=== PATIENT | female | born 1960 | race Caucasian/White ===

== ENCOUNTER → 2016-08-31 | Outpatient (CLI) | payer OTHER, BC ==
[~2016-08-31] VITALS: Ht 167.6 cm; Wt 83.6 kg
[~2016-08-31] MED LIST: ALDARA1 EACH TP; ARTIFICIAL TEAR15 M1 OPHTHALMIC; ASPIRIN EC81 M1 PO; ASPIRIN81 M2 PO; BENICAR OR; BLACK PEPPER; CALCIUM + VIT1 EACH PO; CITRACAL + D C1 EACH PO; COUMADIN 5 MG TA5 M1 PO; COUMADIN7.5 MG PO; ENOXAPARIN80 MG/0.8 SQ; FISH OIL 1,0001 EAC5 PO; FISH OIL 1,2001 EAC4 PO; FLEXERIL PO; GLUCOPHAGE500 MG PO; GLUCOSAMINE &1 EACH; GLUCOSAMINE-CH480 M1 PO; JANTOVEN5 MG PO; KLOR-CON 1010 MEQ PO; LISINOPRIL5 MG PO; LOPRESSOR25 PO; MARINOL10 MG PO; MARINOL5 MG PO; MILLIPRED DP5 MG PO; MIRALAX255 GM PO; MULTIVITAMIN W1 EAC5 PO; NEXIUM40 MG PO; OSTERA TABLET1 EACH PO; OXYCODONE HCL 55 MG PO; OXYCODONE HCL5 M1 PO; OXYIR5 MG PO; PHENERGAN 25 MG25 M1 PO; PREDNISONE 5 MG5 M1 PO; PRILOSEC40 MG PO; PRISTIQ100 MG PO; PROGRAF1 MG PO; ROXICODONE15 M1 PO; SYNTHROID50 MCG PO; SYNTHROID75 MCG PO; TOPROL XL25 MG PO; TOPROL XL50 MG PO; TRADJENTA5 MG PO; TURMERIC; ULTRAM ER100 MG PO; VITAMIN D1000 UNI1 PO; [UNRECOGNIZED DRUG - OTHER]
--- NOTE | ~2016-08-31 | HPC ---
[facility] [place] [address] PAIN MANAGEMENT CONSULTATION Name: ANKITA WHITNEY Room #: REG [facility].#: [id number] Admission: 08/31/16 Attend Phys: Tayo Fiore MD Discharge: Date of : 60 Report #: [id number] THIS REPORT FOR: //name// CC: TALHA Fiore DATE OF SERVICE: 08/31/2016 HISTORY: Followup visit for chronic abdominal pain and intractable nausea. The patient is now complaining of pain in the right facial area where she has a squamous cell carcinoma. The patient presents to pain clinic today reporting ongoing pain in the level of 5-6/10. She has had diffuse pain ever since developing this very rapidly spreading facial squamous cell cancer. 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 She has reported that recently her pain has been worsened by eating and this has given her some anorexia. She reports worst pain in the morning than in the evening. 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 She is also under treatment for ulcerative colitis. She has an ileostomy. PHYSICAL EXAMINATION: GENERAL: Her affect is not quite as bright as usual, but still she remains very optimistic. VITAL SIGNS: Her blood pressure 106/81, heart rate 62. BMI is 29.8. HEENT: Examination of the facial rash reveals a diffuse spreading redness around the right orbit. There is couple of areas of excoriation. The area is tender and inflamed. ABDOMEN: Soft, tender. IMPRESSION: 1. Chronic intractable pain syndrome. 2. Autoimmune hepatitis, status post liver transplant. 3. Squamous cell carcinoma, right facial area. 4. Ulcerative colitis. 5. Fibromyalgia. 6. Hypertension. 7. Management of high risk medication. PLAN: Renewed her medication for her today, Marinol 10 mg t.i.d. No other [facility] [address] [place] [address] PAIN MANAGEMENT CONSULTATION Name: CHRIS ZAVALAANKITA GEORGE Room #: REG [facility].#: [id number] Admission: 08/31/16 Attend Phys: Tayo Fiore MD Discharge: Date of : 60 Report #: [id number] medications were ordered, although we discussed the possibility of adjusting her antiemetics. RECOMMENDATIONS: To pursue acupressure wrist band, which may be used for nausea and we found that there are several types of these, which are available through [employer] and [employer]. Followup visit planned in 3 months. By: [id number] Tayo Fiore MD /nt
[2016-08-31 08:22] VITALS: BP 106/81
== END ==
LOC: PAIN 07:00
DX: K75.4 Autoimmune hepatitis (principal); K51.90 Ulcerative colitis, unspecified, without complications; I10 Essential (primary) hypertension; C76.0 Malignant neoplasm of head, face and neck; M79.7 Fibromyalgia; F10.21 Alcohol dependence, in remission

== ENCOUNTER → 2017-01-01 | Outpatient (CLI) | payer OTHER, BC ==
[~2017-01-01] VITALS: Ht 167.6 cm; Wt 88.6 kg
--- NOTE | ~2017-01-01 | HPC ---
[facility] [place] [address] [address] PAIN MANAGEMENT CONSULTATION Name: ANKITA WHITNEY Room #: REG [facility] Ning.#: [id number] Admission: 01/01/17 Attend Phys: Tayo Fiore MD Discharge: Date of : 60 Report #: [id number] THIS REPORT FOR: //name// CC: TALHA Fiore DATE OF SERVICE: 01/01/2017 Followup visit for management of high risk medication. The patient returns to clinic today. I provided her with Marinol, which helps with pain and nausea. She is doing well today. Pain scores are 2, dull aching and raw. Her fibromyalgia is under reasonable control. Her medication is Marinol, which has been very effective at a dose of 10 mg 3 times daily. She has been taking it for some time now. She seems happier and more relaxed today. She feels stable, healthier than she was last time she was here. She is dealing with a very sick and she herself has had a liver treatments plan. She suffers from autoimmune hepatitis. She has a history of ulcerative colitis with ileostomy. PHYSICAL EXAMINATION: Affect is pleasant. Blood pressure 147/95, heart rate 77, respirations 20, BMI 31.6. Diffuse tenderness. No focal weakness. IMPRESSION: 1. Chronic intractable pain. 2. Autoimmune hepatitis, status post liver transplant. 3. Ulcerative colitis. 4. History of fibromyalgia. 5. Hypertension. 6. Management of high risk medication. I had renewed her Marinol for her at a previous phone call. She is here for a routine followup. Prescriptions were provided along with refills. I plan to see her at 3-4 month intervals, although this is not an opioid or scheduled medicine. She is instructed to maintain it carefully as it has some abuse potential, has a synthetic THC. By: [id number] Tayo Fiore MD /nt
[2017-01-01 08:49] VITALS: BP 147/95
== END ==
LOC: PAIN 06:45
DX: I10 Essential (primary) hypertension (principal); K51.90 Ulcerative colitis, unspecified, without complications; K75.4 Autoimmune hepatitis; G89.4 Chronic pain syndrome; Z94.4 Liver transplant status; Z87.39 Personal history of other diseases of the musculoskeletal system and connective tissue

== ENCOUNTER → 2017-07-23 | Outpatient (CLI) | payer OTHER, BC ==
[~2017-07-23] VITALS: Ht 167.6 cm; Wt 82.6 kg
[~2017-07-23] MED LIST changes: +KEFLEX500 M1 PO
--- NOTE | ~2017-07-23 | HPC ---
[facility] [place] [address] PAIN MANAGEMENT CONSULTATION Name: CHRIS ZAVALAANKITA GEORGE Room #: REG [facility] M.Dave.#: [id number] Admission: 07/23/17 Attend Phys: Tayo Fiore MD Discharge: Date of : 60 Report #: [id number] THIS REPORT FOR: //name// CC: TALHA Fiore DATE OF SERVICE: 07/23/2017 Followup visit for chronic abdominal pain. I have been taking care of the patient now since 2009. For the last 8 years I have provided her with dronabinol under terms of a written agreement. This is not an opioid medication, but has synthetic THC and she has been using it for a combination of nausea and abdominal pain. The patient has an extremely complex medical history. She has had autoimmune hepatitis and underwent liver transplant 24 years ago. She has had 4 previous back surgeries in addition to multiple surgeries involving her GI tract and abdomen with adhesions. She has an ileostomy that has been functioning well. When I met her, she was suffering from chronic intractable pain and nausea. We have found that dronabinol controlled her abdominal symptoms, controlled nausea, vomiting and provided outstanding relief without the need for opioids or other medications. She has been seen at 3-month intervals. I prescribe her medications for her and evaluate her for pain, symptom management and functionality. She has been a model patient and has done exceptionally well. Out of the blue she was suddenly told that this medication, which has provided such a remarkable benefit to her over the course of the last 8 years, was now being denied. It was denied because "the use is not supported by the FDA or by one of the Medicare approved references for treating her medical condition: Chronic intractable pain, liver transplant status, nausea and vomiting. Coverage requires that the requested drug has been recognized for the treatment of your medical condition by one of the following Medicare approved compendium: the [facility] drug information or the [employer] information system." We have made appeals. We have been turned down. This nearsighted ridiculous denial has resulted in harm to my patient. She has had significant increase in her symptoms and has gone through withdrawal. She is less functional and is seeking out substitute medications, which she would never have done otherwise. There is absolutely no legitimate reason for this medication to suddenly be discontinued placing the patient at harm's way and forcing her into seeking alternative treatment options. She has no desire to use an opioid and is unable to take other medications for pain. We have been left no suggestions by this nebulous denial system, which has been difficult to navigate despite my nurse's effort. An expedited appeal was sent on 07/20/[address] [address] PAIN MANAGEMENT CONSULTATION Name: ANKITA WHITNEY Room #: REG [facility]#: [id number] Admission: 07/23/17 Attend Phys: Tayo iFore MD Discharge: Date of : 60 Report #: [id number] and we have yet to hear back. PHYSICAL EXAMINATION: GENERAL: Today, she appears more restless and anxious than I have seen her in the last 5 years or so. VITAL SIGNS: Her blood pressure is elevated at 149/107, heart rate is 92, respirations 20. She is 5 feet 6 inches, 167 pounds, BMI is 29. CHEST: Clear. CARDIAC: Rhythm shows some prematurity. Otherwise, regular. ABDOMEN: Soft with large scars from her liver transplant. She has a functioning ileostomy with stool noted in the bag. Abdomen is mildly tender. IMPRESSION: 1. Autoimmune hepatitis, status post liver transplant with history of chronic pain and nausea. 2. History of ulcerative colitis with many abdominal surgeries and ileostomy. 3. History of fibromyalgia, which was essentially cured with the use of dronabinol. 4. Hypertension, also well controlled prior to being forced into withdrawal by the insurance company. 5. Management of high risk medication under terms of our written agreement. PLAN: 1. I have checked a buccal drug screen today. 2. We will pursue further efforts to provide this medication for her. 3. I have recognized her predicament, which has been to now be suddenly thrust into the situation of seeking out similar medications, which are not legal in the state of [place] and [place]. Shame on the insurance company. <ELECTRONICALLY SIGNED> By: Tayo Fiore MD 08/20/17 [id number] Tayo Fiore MD /nt
[2017-07-23 10:54] VITALS: BP 149/107
== END ==
LOC: PAIN 07:16
DX: K75.4 Autoimmune hepatitis (principal); G89.29 Other chronic pain; K51.90 Ulcerative colitis, unspecified, without complications; M79.7 Fibromyalgia; I10 Essential (primary) hypertension; Z79.899 Other long term (current) drug therapy

== ENCOUNTER → 2017-11-15 | Outpatient (CLI) | payer OTHER, BC ==
[~2017-11-15] VITALS: Ht 167.6 cm; Wt 88.0 kg
--- NOTE | ~2017-11-15 | HPC ---
[facility] [place] [address] PAIN MANAGEMENT CONSULTATION Name: ANKITA WHITNEY Room #: REG [facility]..#: [id number] Admission: 11/15/17 Attend Phys: Tayo Fiore MD Discharge: Date of : 60 Report #: [id number] THIS REPORT FOR: //name// CC: TALHA Arriaga Physician staff Tayo Fiore DATE OF SERVICE: 11/15/2017 Followup visit for chronic abdominal pain. This is a followup visit for the patient, who is here today for her prescription of dronabinol. She has been on 10 three times a day chronically for as long as she has been associated with our clinic that dates back to 2009. It has been 8 years. Medication works effectively for her and provides substantial control of abdominal symptoms including nausea, vomiting and pain. She had no need for other medications. I will continue to provide it for her as long as we have not received interference from outside sources interrupting the doctor-patient relationship. She has as noted significant medical history, status post liver transplant. drug has been now for so long that we have a good history of how it affects her liver function studies and she has done well with them. Plan is to continue medication. PHYSICAL EXAMINATION: She is pleasant, alert and oriented, without signs of overmedication. Her blood pressure 130/93, heart rate 68, respirations 14, O2 sat 97. She is 5 feet 6 inches, 194 pounds, BMI is 31.3. She scores her pain intensity is 2. She moves easily from sitting to standing position. She walks without difficulty. She has some tenderness across the lower abdomen, but is well controlled with her current medication. There is an ileostomy. She has a scar from previous back surgery. IMPRESSION: 1. Chronic intractable abdominal pain status post liver transplant with history of chronic pain and autoimmune hepatitis. 2. Ulcerative colitis with many of surgeries including an ileostomy. 3. Fibromyalgia. 4. Hypertension. 5. Management of schedule III medication dronabinol under terms of written agreement. [address] [address] PAIN MANAGEMENT CONSULTATION Name: ANKITA WHITNEY Room #: REG [facility].#: [id number] Admission: 11/15/17 Attend Phys: Tayo Fiore MD Discharge: Date of : 60 Report #: [id number] PLAN: Medications were renewed for 3 months. I plan to see her back in the clinic at that time. By: [id number] Tayo Fiore MD /nt
[2017-11-15 13:33] VITALS: BP 130/93
== END ==
LOC: PAIN 07:16
DX: I10 Essential (primary) hypertension (principal); R10.9 Unspecified abdominal pain; G89.4 Chronic pain syndrome; M79.7 Fibromyalgia; K51.90 Ulcerative colitis, unspecified, without complications; Z79.899 Other long term (current) drug therapy

== ENCOUNTER → 2018-02-19 | Outpatient (CLI) | payer OTHER, BC ==
[~2018-02-19] VITALS: Ht 167.6 cm; Wt 87.2 kg
--- NOTE | ~2018-02-19 | HPC ---
[facility] [place] [address] [place] [address] PAIN MANAGEMENT CONSULTATION Name: ANKITA WHITNEY Room #: REG [facility].#: [id number] Admission: 02/19/18 Attend Phys: Andrez Beach DO Discharge: Date of : 60 Report #: [id number] THIS REPORT FOR: //name// CC: TALHA PUGH Physician staff DATE OF SERVICE: 02/19/2018 CHIEF COMPLAINT: Chronic abdominal pain and nausea. HISTORY OF PRESENT ILLNESS: As you know, the patient is a 57-year-old female who is followed by my partner, Dr. Tayo Fiore for chronic abdominal pain and nausea issues. The patient is taking Marinol 10 mg 3 times a day with good efficacy. The patient states that she tried to discontinue the medication for a period of approximately 3 days and her symptoms returned quite rapidly. She restarted the medication and her symptoms resolved. She is extremely pleased with response to the Marinol and wishes to continue the therapy. She is having no side effects to medication including somnolence, decreased mental acuity, disorientation and confusion. She is indicating coverage remains present with her current insurer. She returns today in followup visit requesting refill on medications. ALLERGIES: KETOROLAC, PROCHLORPERAZINE, CIPROFLOXACIN, VANCOMYCIN. CURRENT MEDICATIONS: Calcium carbonate 1 tab per day, omega-3 fish oil 1 tab per day, levothyroxine 50 mcg per day, prednisone 5 mg twice a day, MiraLax 17 grams per day, metoprolol 50 mg once a day, dronabinol 10 mg 3 times a day, warfarin 5 mg 1 tab p.o. q.a.m., tacrolimus 1 mg per day, cholecalciferol 1 tab per day, turmeric one tablet each day, Tradjenta 5 mg once a day, lisinopril 10 mg per day, Aldara apply topically twice a day. SOCIAL HISTORY: The patient reports herself a nonsmoker. Denies IV or illicit drug use. Denies any chronic alcohol use. She is unaccompanied at today's visit. IMAGING: No new imaging available. PQRS: The patient has bilateral lower extremity osteoarthritis involving bilateral hips, bilateral knees. No rheumatoid arthritis. She is placing pain intensity today at 2/10. She is not a fall risk, has not had a fall in the last 3 months. She is on a blood thinner in the form of warfarin. She is treated for hypertension. She is not on opioid. She is a low risk for opioid abuse. Pain impact 35/70, moderate. [address] [address] PAIN MANAGEMENT CONSULTATION Name: AKNITA WHITNEY Room #: REG [facility] Dulce MariaChas#: [id number] Admission: 02/19/18 Attend Phys: Andrez Beach DO Discharge: Date of : 60 Report #: [id number] PHYSICAL EXAMINATION: VITAL SIGNS: Blood pressure 132/85, pulse 83, respiratory rate 16 and unlabored. The patient is 98% on room air. Height 5 feet 6 inches tall, weight 192.2 pounds, BMI calculated 31.0. GENERAL: Well-developed, well-nourished, well-hydrated 57-year-old female appearing her stated age, placing current pain score 2/10. HEENT: Normocephalic, atraumatic. Pupils equal, round, reactive to light. Speech is fluent. The patient deemed a good historian. EXTREMITIES: Show no clubbing, no cyanosis, no edema. ABDOMEN: There is some tenderness over the lower abdomen with deep palpation. Ileostomy is in place and scars from previous surgery noted. Bowel sounds are present. ASSESSMENT: 1. Chronic abdominal pain. 2. Chronic nausea. 3. Ulcerative colitis. 4. Fibromyalgia. 5. Chronic intractable pain. PLAN: 1. The patient returns today in followup visit indicating good efficacy with the drop dronabinol therapy. She denies any side effects of somnolence, decreased mental acuity, disorientation, confusion, mental slowing with the use of medication. The patient states that she missed a couple of doses of the medication over a 3-day period of time and noted significant increase in her abdominal discomfort. She restarted the medication and the symptoms did resolve. She returns requesting refill on medications. Currently, her insurer is covering this medication and she wishes to continue its use as she is finding good benefit with therapy. 2. The patient was provided a prescription of Marinol 10 mg dose 1 tab p.o. t.i.d., I have given the patient #90 with 2 refills, 3 months' worth of medication. 3. The patient will return to see Dr. Tayo Fiore, her prescribing physician for continued therapy and discussion of other treatment options if necessary. <ELECTRONICALLY SIGNED> By: Andrez Beach DO 02/20/18 [id number] Andrez Beach DO /nt
[2018-02-19 13:15] VITALS: BP 132/85
== END ==
LOC: PAIN 06:57
DX: R10.9 Unspecified abdominal pain (principal); R11.0 Nausea; G89.4 Chronic pain syndrome; K51.90 Ulcerative colitis, unspecified, without complications; M79.7 Fibromyalgia

== ENCOUNTER → 2018-05-20 | Outpatient (CLI) | payer OTHER, BC ==
[~2018-05-20] VITALS: Ht 167.6 cm; Wt 79.4 kg
--- NOTE | 2018-05-20 10:05 | NUR ---
Pain Clinic Assessment: 1. History of Osteoarthritis: LOWER EXTREMEITY History of Rheumatoid Arthritis: Not Applicable 2. Height: 5 ft. 6 in. 167.6 cm. Weight: 175.0 lb. oz. 79.380 kg. Patient's BMI: 28.3 3. Vital Signs: BP: Pulse: 77 Resp: 16 Temp: 02 Sat: 98 ECG Mon: 4. Pain Intensity: 2 5. Fall Risk: Dizziness: N Needs help standing or walking: N Fallen in the last 3 months: N Fall risk comments: 6. Patient on Blood Thinner: Warfarin (Coumadin) 7. History of Hypertension: Y 8. Opioid Therapy greater than 6 weeks: N Opiate Contract Signed: 9. Risk Assessment Tool Provided: LOW RISK 10. Functional Assessment Tool: 39/70 11. Recreational Drug Use: Current within past 3 mos Drug Type: Tobacco Use: Never Smoker Tobacco Type: Amount or Packs/day: How Many Years: Alcohol Use: Yes Frequency: Special Occasions Quant:
--- NOTE | 2018-05-21 07:24 | HPC ---
[facility] [place] [address] PAIN MANAGEMENT CONSULTATION Name: CHRIS ZAVALAANKITA GEORGE Room #: REG [facility].#: [id number] Admission: 05/20/18 Attend Phys: Gisela Jacob Discharge: Date of : 60 Report #: [id number] THIS REPORT FOR: //name// CC: Gisela Jacob [facility] Physician staff DATE OF SERVICE: 05/20/2018 CHIEF COMPLAINT: Chronic abdominal pain and nausea. HISTORY OF PRESENT ILLNESS: This is a pleasant 57-year-old female who is followed by Dr. Tayo Fiore for her chronic abdominal pain. She currently takes Marinol 3 times a day 10 mg with good results. The patient tells me that she has been doing well today. Her pain score, nausea score is 2/10. She tells me that her autoimmune problems are better when she takes her Marinol as well as her nausea and vomiting is significantly decreased. She also takes MiraLax twice a day and does not have any problems with constipation. She has questions today about legalized marijuana for medical purposes since it will soon be legal in the state of [place]. This patient does live in [place] though, but does have questions regarding this. She would like a refill of her medicines today. ALLERGIES: TORADOL, CIPRO, VANCOMYCIN. CURRENT LIST OF MEDICATIONS: Marinol 10 mg 3 times a day, Aldara cream twice a day, Zestril 5 mg daily, Tradjenta 5 mg daily, turmeric, vitamin D daily, Prograf 1 mg daily, Coumadin 6 mg daily, metoprolol 50 mg twice a day, MiraLax twice a day, prednisone 5 mg daily, Synthroid 50 mcg daily, fish oil daily and calcium with vitamin D. PQRS: 1. The patient has bilateral lower extremity osteoarthritis and denies rheumatoid arthritis. Height is 5 feet 6 inches, weight 175. BMI is 28.3. Vital signs: Blood pressure 130/90, pulse 77, respirations 16, oxygen sat 98, pain score 2/10. Fall risk, she denies dizziness, does not need help walking or standing, has not fallen in the last 3 months. The patient is on Coumadin for a blood thinner and does take antihypertensive medicines. 2. She does not take opioids, but she does have a contract on the chart for her Marinol. Risk assessment tool is low. Her functional assessment is 39/70 3. Recreational drug use. The patient does take it currently. She is not a smoker and occasionally drinks alcohol. We did check the prescription monitoring system. The patient is filling her Marinol from our doctors appropriately. She did have a hydrocodone filled. When questioned about that, she tells me it was from an acid peel that she gets done periodically as a result of her transplants. She did take hydrocodone for a couple of days. Otherwise, no other deviations noted. [address] [address] PAIN MANAGEMENT CONSULTATION Name: ANKITA WHITNEY Room #: REG [facility]#: [id number] Admission: 05/20/18 Attend Phys: Gisela Jacob Discharge: Date of : 60 Report #: [id number] PHYSICAL EXAMINATION: GENERAL: This is a well-developed, well-nourished female who appears her stated age. She is alert and orientated and her affect is appropriate. HEENT: Normocephalic, atraumatic. Pupils equal, round, reactive to light. She is a good historian and speech is fluent. EXTREMITIES: No clubbing, no cyanosis, no edema present. ABDOMEN: The patient complains of some tenderness in her lower abdomen. She does have ileostomy in place. ASSESSMENT: 1. Chronic abdominal pain. 2. Chronic nausea. 3. Ulcerative colitis. 4. Fibromyalgia. 5. Chronic intractable pain. 6. Status post liver transplant. We reviewed the fact that opiate medications are being used to provide analgesia adequate to support activities of daily living, not attempting to achieve a specific pain score on the 0-10 Visual Analog Scale. The current opiate medications are providing sufficient analgesia to allow the patient to participate in activities of daily living. The patient is not exhibiting any aberrant behavior suggestive of drug diversion. The patient is not having any adverse reactions to medications. The patient is not suffering from daytime somnolence or mental acuity changes. The patient is managing opiate-induced constipation with appropriate hgfx-ebp-rrhvhqz agents and dietary considerations. The patient was counseled on concern for caution with operating a motor vehicle while using opiate medications. A physical exam was performed and the patient's functional status was evaluated. All patients with back pain were advised against the bed rest greater than 4 days and were advised to return to normal activities. Pain score assessment was noted and the treatment plan was reviewed with the patient. All current medications, both prescribed and OTC were reviewed and reconciled on the electronic medical record. Tobacco screening was accomplished and smoking cessation was advised when indicated. BMI was noted and diet/exercise modification was recommended for all patients following outside normal parameters. I reviewed with the patient today their responsibilities to safeguard prescription medications, reviewed their responsibility to utilize medications only as prescribed by the physician. They are to seek and receive pain medications only from 1 physician group ( [facility]). They are to use 1 pharmacy and keep the clinic informed if they change pharmacies. Their responsibilities include making followup visits in a timely fashion and to avoid [facility] [address] [place] [address] PAIN MANAGEMENT CONSULTATION Name: ANKITA WHITNEY Room #: REG [facility]..#: [id number] Admission: 05/20/18 Attend Phys: Gisela JAKOB Nidia Discharge: Date of : 60 Report #: [id number] abrupt discontinuation of medication usage. Their responsibilities further include bringing their medications (bottles from the pharmacy with residual pills) to the visit for possible confirmation of pill counts and the patient understands it is their responsibility to submit to random drug screens to ensure both that the medications prescribed are present, and that no other controlled substances are present. All prescriptions provided today were generated electronically. PLAN: 1. The patient will return to the clinic today for followup of her medication refill for her dronabinol. She denies any side effects of daytime somnolence or decreased mental acuity, disorientation or confusion. She states that it is very helpful in controlling her inflammation and her nausea and vomiting. The patient thinks that we will need to do a prior authorization again. The patient has been on this medication for several years, periodically needing a prior authorization, but the patient does get overall good relief from her symptoms by taking this medication on a daily basis. Script was given today for Marinol 10 mg 3 times a day, #90 with 2 additional refills. 2. We did discuss medical marijuna. The laws are still being finalized in [place] and as far as I know no doctors in this clinic will be writing for medical marijuana. We all need more information about how the state is going to handle this issue. It is legalized at the state level but not at the federal level. 3. Dr. Fiore did stop and see the patient as he is a prescribing doctor. Care given today under collaboration with Dr. Fiore. The patient will return in 3 months' time. <ELECTRONICALLY SIGNED> By: Gisela Jacob 05/21/18 0724 [id number] Gisela Jacob /nt
== END ==
LOC: PAIN 07:25
DX: R10.9 Unspecified abdominal pain (principal); R11.0 Nausea; G89.4 Chronic pain syndrome; M79.7 Fibromyalgia; K51.90 Ulcerative colitis, unspecified, without complications; Z94.4 Liver transplant status

== ENCOUNTER → 2018-08-19 | Outpatient (CLI) | payer OTHER, BC ==
[~2018-08-19] VITALS: Ht 170.2 cm; Wt 88.5 kg
[~2018-08-19] MED LIST changes: +TOPROL XL100 MG PO
[2018-08-19 09:12] VITALS: BP 138/72
--- NOTE | 2018-08-19 09:15 | NUR ---
Pain Clinic Assessment: 1. History of Osteoarthritis: LOWER EXTREMEITY History of Rheumatoid Arthritis: Not Applicable 2. Height: 5 ft. 7 in. 170.2 cm. Weight: 195.0 lb. oz. 88.452 kg. Patient's BMI: 30.5 3. Vital Signs: BP: 138/72 Pulse: 76 Resp: 16 Temp: 02 Sat: 98 ECG Mon: 4. Pain Intensity: 2 5. Fall Risk: Dizziness: N Needs help standing or walking: N Fallen in the last 3 months: N Fall risk comments: 6. Patient on Blood Thinner: Warfarin (Coumadin) 7. History of Hypertension: Y 8. Opioid Therapy greater than 6 weeks: N Opiate Contract Signed: 9. Risk Assessment Tool Provided: LOW RISK 10. Functional Assessment Tool: 39/70 11. Recreational Drug Use: Current within past 3 mos Drug Type: Tobacco Use: Never Smoker Tobacco Type: Amount or Packs/day: How Many Years: Alcohol Use: Yes Frequency: Quant:
--- NOTE | 2018-08-20 07:41 | HPC ---
[facility] [address] [address] PAIN MANAGEMENT CONSULTATION Name: CHRIS ZAVALAANKITA GEORGE Room #: REG [facility]..#: [id number] Admission: 08/19/18 ������������������ Attend Phys: Gisela Jacob Discharge: ������������������ Date of : 60 Report #: [id number] THIS REPORT FOR: //name// CC: Gisela Jacob [facility] Physician staff DATE OF SERVICE: 08/19/2018 CHIEF COMPLAINT: Chronic abdominal pain and nausea. HISTORY OF PRESENT ILLNESS: This is a pleasant 57-year-old that returns to the pain clinic today for her chronic abdominal pain and refill of her Marinol prescription. She tells me that her nausea is well controlled when she takes her Marinol 3 times a day. She does complain of some abdominal pain, rating her scores today at 2/10 of a pain score, does not give me a nausea score. She tells me that she is doing quite well. She is not having any problems with daytime sleepiness or constipation. She does tell me that she was in the hospital last month for about 5 days with influenza A. She did not get a flu shot this year, but has decided that she will get one in the future since she is immunosuppressed from her liver transplant. She thinks that it is probably a good idea to have it after being so sick this past month. The patient would just like a refill of her nausea medicine Marinol that she can be controlled with her Marinol. ALLERGIES: TORADOL, COMPAZINE, CIPRO AND VANCOMYCIN. CURRENT MEDICATIONS: Toprol-XL 100 mg daily, Marinol 10 mg t.i.d., Aldara topical cream b.i.d., lisinopril 5 mg daily, Tradjenta 5 mg daily, turmeric daily, vitamin D daily, Prograf 1 mg daily, Coumadin 6 mg daily, MiraLax daily, prednisone 5 mg daily, Synthroid 50 mcg daily, and fish oil capsule daily. PQRS: 1. The patient has bilateral lower extremity osteoarthritis and denies any rheumatoid arthritis. 2. Height is 5 feet 7 inches, weight is 195, BMI is 30. 3. Vital signs: 138/72, pulse is 76, respirations 16, oxygen sat 98. 4. Pain and nausea score of 2/10. 5. Fall risk. Denies dizziness, does not need help walking or standing, has not fallen in the last 3 months. 6. The patient takes Coumadin on a daily basis for her blood thinner and she does take medicines for hypertension. 7. Opioid therapy as she does not take. Her risk assessment tool is low. Her functional assessment is 39/70. 8. Recreational drug use. Within the past 3 months, she is not a smoker [place] [address] PAIN MANAGEMENT CONSULTATION Name: CHRIS ZAVALAANKITA DORIS Room #: REG [facility]#: [id number] Admission: 08/19/18 ������������������ Attend Phys: Gisela Jacob Discharge: ������������������ Date of : 60 Report #: [id number] 9. We did check the prescription monitoring system. The patient is filling appropriately her Marinol from Dr. Tayo Fiore. We will check a drug screen on her at her next visit. PHYSICAL EXAMINATION: GENERAL: This is a well-developed, well-nourished, well-hydrated 57-year-old female, who appears her stated age. She is alert and orientated, her affect is appropriate. HEENT: Normocephalic, atraumatic. Pupils equal, round and reactive to light. Speech is fluent. EXTREMITIES: No clubbing, no cyanosis, no edema. ABDOMEN: Does complain of some tenderness and has ileostomy in place. ASSESSMENT: 1. Chronic abdominal pain. 2. Chronic nausea. 3. Ulcerative colitis. 4. Fibromyalgia. 5. Chronic intractable pain. 6. Status post liver transplant. We reviewed the fact that opiate medications are being used to provide analgesia adequate to support activities of daily living, not attempting to achieve a specific pain score on the 0-10 Visual Analog Scale. The current opiate medications are providing sufficient analgesia to allow the patient to participate in activities of daily living. The patient is not exhibiting any aberrant behavior suggestive of drug diversion. The patient is not having any adverse reactions to medications. The patient is not suffering from daytime somnolence or mental acuity changes. The patient is managing opiate-induced constipation with appropriate xpus-llw-qmwrngv agents and dietary considerations. The patient was counseled on concern for caution with operating a motor vehicle while using opiate medications. A physical exam was performed and the patient's functional status was evaluated. All patients with back pain were advised against the bed rest greater than 4 days and were advised to return to normal activities. Pain score assessment was noted and the treatment plan was reviewed with the patient. All current medications, both prescribed and OTC were reviewed and reconciled on the electronic medical record. Tobacco screening was accomplished and smoking cessation was advised when indicated. BMI was noted and diet/exercise modification was recommended for all patients following outside normal parameters. I reviewed with the patient today their responsibilities to safeguard prescription medications, reviewed their responsibility to utilize medications only as prescribed by the physician. They are to seek and receive pain [facility] [address] [place] [address] PAIN MANAGEMENT CONSULTATION Name: ANKITA WHITNEY Room #: REG [facility]#: [id number] Admission: 08/19/18 ������������������ Attend Phys: Gisela Jacob Discharge: ������������������ Date of : 60 Report #: [id number] medications only from 1 physician group ( [facility]). They are to use 1 pharmacy and keep the clinic informed if they change pharmacies. Their responsibilities include making followup visits in a timely fashion and to avoid abrupt discontinuation of medication usage. Their responsibilities further include bringing their medications (bottles from the pharmacy with residual pills) to the visit for possible confirmation of pill counts and the patient understands it is their responsibility to submit to random drug screens to ensure both that the medications prescribed are present, and that no other controlled substances are present. All prescriptions provided today were generated electronically. PLAN: 1. We discussed treatment options with the patient today. She is doing well with her Marinol, which we will refill today for 10 mg tablets 3 times a day, #90 with 2 additional refills. 2. The patient tells me while she was in the hospital with her influenza A, she was having some cardiac issues. She is wearing a wireless monitor for 2 weeks to see if there is any other dysrhythmias besides her AFib. They are adjusting her medications slightly. She tells me she has not had a cardiac workup for a while, so she feels that this is good to see what was causing her to have some other problems while she was in the hospital. 3. The patient will follow up with us in 3 months' time period for an appointment. 4. Dr. Fiore did see the patient today and also collaborative care. ��������������������������������������������� <ELECTRONICALLY SIGNED> ���������������������������������������� By: Gisela Jacob ��������������������������������������������� 08/20/18 0741 [id number] Gisela Jacob /nt
== END ==
LOC: PAIN 06:47
DX: R10.9 Unspecified abdominal pain (principal); R11.0 Nausea; G89.4 Chronic pain syndrome; M79.7 Fibromyalgia; K51.90 Ulcerative colitis, unspecified, without complications; Z94.4 Liver transplant status; Z88.8 Allergy status to other drugs, medicaments and biological substances

== ENCOUNTER → 2019-02-12 | Outpatient (CLI) | payer OTHER, BC ==
[~2019-02-12] VITALS: Ht 170.2 cm; Wt 81.6 kg
[~2019-02-12] MED LIST changes: +EFUDEX40 GM TOP; +FLECAINIDE ACET50 M1 PO; +LIPITOR 20 MG T20 M1 PO; +LIPITOR40 MG PO; +TAMBOCOR 100 M100 M1 PO
[2019-02-12 08:58] VITALS: BP 140/99
--- NOTE | 2019-02-12 09:07 | NUR ---
Pain Clinic Assessment: 1. History of Osteoarthritis: LOWER EXTREMEITY History of Rheumatoid Arthritis: Not Applicable 2. Height: 5 ft. 7 in. 170.2 cm. Weight: 180.0 lb. oz. 81.648 kg. Patient's BMI: 28.2 3. Vital Signs: BP: 140/99 Pulse: 65 Resp: 16 Temp: 02 Sat: 95 ECG Mon: 4. Pain Intensity: 2 5. Fall Risk: Dizziness: N Needs help standing or walking: N Fallen in the last 3 months: N Fall risk comments: 6. Patient on Blood Thinner: Warfarin (Coumadin) 7. History of Hypertension: Y 8. Opioid Therapy greater than 6 weeks: N Opiate Contract Signed: 9. Risk Assessment Tool Provided: LOW RISK-0 10. Functional Assessment Tool: 11. Recreational Drug Use: Current within past 3 mos Drug Type: Tobacco Use: Never Smoker Tobacco Type: Amount or Packs/day: How Many Years: Alcohol Use: Yes Frequency: Special Occasions Quant: 1
--- NOTE | 2019-02-13 08:25 | HPC ---
[facility] [place] [address] PAIN MANAGEMENT CONSULTATION Name: TIMOTHYRAJAN LUCASANKITA GEORGE Room #: REG [facility].#: [id number] Admission: 02/12/19 Attend Phys: Gisela Jacob Discharge: Date of : 60 Report #: [id number] THIS REPORT FOR: //name// CC: Gisela Jacob [facility] Physician staff DATE OF SERVICE: 02/12/2019 CHIEF COMPLAINT: Chronic abdominal pain and nausea. HISTORY OF PRESENT ILLNESS: This is a 58-year-old female who returns to the pain clinic today for a refill of her Marinol that she uses to help treat her ongoing nausea and abdominal pain. She reports that she is doing quite well, very stable with this. Pain score is 2/10 today, which tends to be an average number. She also does suffer from fibromyalgia. Her pain is a cramping, aching pain, worse with eating and usually worse in the morning, but the medications are very helpful in treating this pain. She would like refills of this today. ALLERGIES: TORADOL, COMPAZINE, CIPRO, AND VANCOMYCIN. CURRENT LIST OF MEDICATIONS: Efudex cream, flecainide 100 mg b.i.d., Lipitor 20 mg daily, Marinol 10 mg 3 times a day, Toprol XL 100 mg daily, Aldara cream topical b.i.d., Zestril 5 mg daily, Tradjenta 5 mg daily, turmeric, vitamin D, Prograf 1 mg daily, Coumadin 6 mg daily, MiraLax p.r.n., prednisone 5 mg daily, Synthroid 50 mcg daily and fish oil. PQRS: 1. She has bilateral lower extremity osteoarthritis. Denies any rheumatoid arthritis. 2. Height is 5 feet 7 inches, weight is 180, BMI is 28. 3. Vital signs 140/99, pulse is 65, respirations 16, oxygen sat is 95. 4. Pain score is 2/10. 5. Denies dizziness, does not need help walking or standing, has not fallen in the last 3 months. 6. The patient is on blood thinner of Coumadin and also takes hypertension medicines. 7. Opioid therapy, she denies. Her risk assessment is low. Functional assessment is 25/70. 8. Recreational drug use: She does use marijuana. She is not a smoker and occasionally drinks alcohol. According to the prescription monitoring system, the patient is filling appropriately for her Marinol in a timely fashion and is due today. ASSESSMENT: [facility] [address] [place] [address] PAIN MANAGEMENT CONSULTATION Name: ANKITA WHITNEY Room #: REG [facility].#: [id number] Admission: 02/12/19 Attend Phys: Gisela Jacob Discharge: Date of : 60 Report #: [id number] 1. Chronic abdominal pain with chronic nausea. 2. Ulcerative colitis. 3. Fibromyalgia. 4. Chronic intractable pain. 5. Status post liver transplant. PHYSICAL EXAMINATION: GENERAL: This is a well-developed, well-nourished 58-year-old female who appears her stated age. She is alert and orientated. HEENT: Normocephalic, atraumatic. Extraocular eye muscles are intact. Mucous membranes are moist. EXTREMITIES: No clubbing, no cyanosis, no edema. She has an ileostomy in place. She has tenderness in her lower abdomen, with no nausea noted today. We reviewed the fact that opiate medications are being used to provide analgesia adequate to support activities of daily living, not attempting to achieve a specific pain score on the 0-10 Visual Analog Scale. The current opiate medications are providing sufficient analgesia to allow the patient to participate in activities of daily living. The patient is not exhibiting any aberrant behavior suggestive of drug diversion. The patient is not having any adverse reactions to medications. The patient is not suffering from daytime somnolence or mental acuity changes. The patient is managing opiate-induced constipation with appropriate jfmn-zlq-tudaziy agents and dietary considerations. The patient was counseled on concern for caution with operating a motor vehicle while using opiate medications. A physical exam was performed and the patient's functional status was evaluated. All patients with back pain were advised against the bed rest greater than 4 days and were advised to return to normal activities. Pain score assessment was noted and the treatment plan was reviewed with the patient. All current medications, both prescribed and OTC were reviewed and reconciled on the electronic medical record. Tobacco screening was accomplished and smoking cessation was advised when indicated. BMI was noted and diet/exercise modification was recommended for all patients following outside normal parameters. I reviewed with the patient today their responsibilities to safeguard prescription medications, reviewed their responsibility to utilize medications only as prescribed by the physician. They are to seek and receive pain medications only from 1 physician group ( [facility]). They are to use 1 pharmacy and keep the clinic informed if they change pharmacies. Their responsibilities include making followup visits in a timely fashion and to avoid abrupt discontinuation of medication usage. Their responsibilities further include bringing their medications (bottles from the pharmacy with residual pills) to the visit for possible confirmation of pill counts and the patient understands it is their responsibility to submit to random drug screens to [address] [address] PAIN MANAGEMENT CONSULTATION Name: ANKITA WHITNEY Room #: REG [facility]#: [id number] Admission: 02/12/19 Attend Phys: Gisela Jacob Discharge: Date of : 60 Report #: [id number] ensure both that the medications prescribed are present, and that no other controlled substances are present. All prescriptions provided today were generated electronically. PLAN: 1. We discussed treatment options with the patient today. Refills for her Marinol, #90, with 2 additional refills. This is very beneficial in controlling her pain and keeping her out of the hospital. 2. Dr. Grullon did see the patient and collaborated care. We did go over her urine drug screen, which was appropriate for her Marinol use, though it did show signs of metabolites of alcohol from previous drinking the night before, which she does admit to drinking 1 daily. 3. The patient will be seen in 3 months. She will call for an appointment as needed. <ELECTRONICALLY SIGNED> By: Gisela Jacob 02/13/19 0825 1004 0043 Gisela Jacob /betsy
== END ==
LOC: PAIN 06:50
DX: R10.9 Unspecified abdominal pain (principal); K51.90 Ulcerative colitis, unspecified, without complications; G89.4 Chronic pain syndrome; M79.7 Fibromyalgia; Z94.4 Liver transplant status; Z79.899 Other long term (current) drug therapy; Z88.8 Allergy status to other drugs, medicaments and biological substances

== ENCOUNTER → 2019-04-14 | Outpatient (CLI) | payer OTHER, BC ==
[~2019-04-14] VITALS: Ht 170.2 cm; Wt 89.9 kg
[2019-04-14 09:08] VITALS: BP 120/93
--- NOTE | 2019-04-14 09:23 | NUR ---
Pain Clinic Assessment: 1. History of Osteoarthritis: LOWER EXTREMEITY History of Rheumatoid Arthritis: Not Applicable 2. Height: 5 ft. 7 in. 170.2 cm. Weight: 198.2 lb. oz. 89.903 kg. Patient's BMI: 31.0 3. Vital Signs: BP: 120/93 Pulse: 71 Resp: 16 Temp: 02 Sat: 97 ECG Mon: 4. Pain Intensity: 3 5. Fall Risk: Dizziness: N Needs help standing or walking: N Fallen in the last 3 months: N Fall risk comments: 6. Patient on Blood Thinner: Warfarin (Coumadin) 7. History of Hypertension: Y 8. Opioid Therapy greater than 6 weeks: N Opiate Contract Signed: 9. Risk Assessment Tool Provided: LOW RISK-0 10. Functional Assessment Tool: 11. Recreational Drug Use: Current within past 3 mos Drug Type: Tobacco Use: Never Smoker Tobacco Type: Amount or Packs/day: How Many Years: Alcohol Use: Yes Frequency: Special Occasions Quant: 2
--- NOTE | 2019-04-14 13:06 | HPC ---
[facility] [place] [address] PAIN MANAGEMENT CONSULTATION Name: ANKITA WHITNEY Room #: REG [facility]..#: [id number] Admission: 04/14/19 Attend Phys: Gisela Jacob Discharge: Date of : 60 Report #: [id number] THIS REPORT FOR: //name// CC: Gisela Arriaga DO Physician staff Tayo Fiore MD DATE OF SERVICE: 04/14/2019 CHIEF COMPLAINT: Chronic abdominal pain and nausea. HISTORY OF PRESENT ILLNESS: This is a 58-year-old female who returns to the pain clinic today for refill of her Marinol that she uses to help treat her ongoing nausea and abdominal pain. She states that her nausea score is 3/10 today, which is an average number for her. It is exacerbated by eating or in the morning upon awakening. She reports she also has ongoing fibromyalgia pain in all of her joints that is achy as well. She knows that she will need a prior an authorization for her Marinol in late April or early May, so she is here slightly early today, so we can work on this prior authorization. Overall, she finds it quite beneficial enabling her to be quite active since it does subside her nausea. She reports she is quite happy, she is going to be a grandmother. She has recently seen her family over Thanksgiving and she learned the news, so she is quite upbeat today regarding this news. ALLERGIES: TORADOL, CIPRO, VANCOMYCIN AND COMPAZINE. CURRENT LIST OF MEDICATIONS: Marinol 10 mg 3 times a day, TravaCor, Lipitor, Toprol, lisinopril, Tradjenta, turmeric, vitamin D, Prograf, Coumadin, MiraLax, prednisone and Synthroid. PQRS: 1. She has lower extremity osteoarthritis. Denies any rheumatoid arthritis. 2. Height is 5 feet 7 inches, weight is 198, BMI is 31. 3. Vital signs: 120/93, pulse is 71, respirations 16, oxygen sat is 97. 4. Pain score is 3/10. 5. Denies dizziness, does not need help standing or walking, has not fallen in the last 3 months. 6. The patient is on Coumadin. She also experiences hypertension and takes medicines for this. 7. Opiate therapy is not greater than 6 weeks. She takes no opioid medications. Her risk assessment tool is low. Functional assessment is 25/70. 8. Recreational drugs. Current marijuana use and on Marinol. Does not smoke [place] [address] PAIN MANAGEMENT CONSULTATION Name: CHRIS ZAVALAANKITA GEORGE Room #: REG [facility].#: [id number] Admission: 04/14/19 Attend Phys: Gisela Jacob Discharge: Date of : 60 Report #: [id number] We did check the prescription monitoring system. The patient has been filling appropriately for her Marinol on a monthly basis. PHYSICAL EXAMINATION: GENERAL: This is a well-developed, well-nourished 58-year-old female who appears her stated age, placing her nausea score at 3/10 today. She is alert and orientated. HEENT: Normocephalic, atraumatic. Extraocular eye muscles are intact. Mucous membranes are moist. ABDOMEN: Nontender. Denies nausea presently. Had nausea prior to her medications earlier today. She has an ileostomy in place. EXTREMITIES: No clubbing, no cyanosis, no edema. MUSCULOSKELETAL: Has general aches in multiple joints. We reviewed the fact that opiate medications are being used to provide analgesia adequate to support activities of daily living, not attempting to achieve a specific pain score on the 0-10 Visual Analog Scale. The current opiate medications are providing sufficient analgesia to allow the patient to participate in activities of daily living. The patient is not exhibiting any aberrant behavior suggestive of drug diversion. The patient is not having any adverse reactions to medications. The patient is not suffering from daytime somnolence or mental acuity changes. The patient is managing opiate-induced constipation with appropriate bzja-wjl-ffvonyb agents and dietary considerations. The patient was counseled on concern for caution with operating a motor vehicle while using opiate medications. A physical exam was performed and the patient's functional status was evaluated. I reviewed with the patient today their responsibilities to safeguard prescription medications, reviewed their responsibility to utilize medications only as prescribed by the physician. They are to seek and receive pain medications only from 1 physician group ( [facility]). They are to use 1 pharmacy and keep the clinic informed if they change pharmacies. Their responsibilities include making followup visits in a timely fashion and to avoid abrupt discontinuation of medication usage. Their responsibilities further include bringing their medications (bottles from the pharmacy with residual pills) to the visit for possible confirmation of pill counts and the patient understands it is their responsibility to submit to random drug screens to ensure both that the medications prescribed are present, and that no other controlled substances are present. All prescriptions provided today were generated electronically. ASSESSMENT: 1. Chronic abdominal pain with chronic nausea. 2. Ulcerative colitis. [facility] [address] [place] [address] PAIN MANAGEMENT CONSULTATION Name: ANKITA WHITNEY Room #: REG [facility]#: [id number] Admission: 04/14/19 Attend Phys: Gisela Jacob Discharge: Date of : 60 Report #: [id number] 3. Fibromyalgia. 4. Chronic intractable pain. 5. Status post liver transplant. 6. History of vaginal cancer. PLAN: 1. We discussed treatment options with the patient today. She is here for followup for her dronabinol. She denies any side effects of daytime somnolence or decreased acuity or confusion. She states that it is very helpful in controlling her inflammation with her nausea and vomiting. This is a continuation of medication that she has been on for several years and has been very helpful. We will refill this medication today for #90 with 2 additional refills of Marinol 10 mg. We will seek reauthorization for this medication if needed for it's continuation of therapy since it is beneficial. 2. The patient is seen in collaboration with Dr. Tayo Fiore who did see the patient as well today. Scripts were e-sent by Dr. Fiore today. <ELECTRONICALLY SIGNED> By: Gisela Jacob 04/14/19 1306 [id number] Gisela Jacob /nt
== END ==
LOC: PAIN 06:51
DX: R10.9 Unspecified abdominal pain (principal); K51.90 Ulcerative colitis, unspecified, without complications; M79.7 Fibromyalgia; G89.4 Chronic pain syndrome; Z94.4 Liver transplant status

== ENCOUNTER → 2019-08-14 | Outpatient (CLI) | payer OTHER, BC ==
[~2019-08-14] VITALS: Ht 170.2 cm; Wt 88.5 kg
[~2019-08-14] MED LIST changes: +DRONABINOL10 MG PO
[2019-08-14 09:42] VITALS: BP 134/97
--- NOTE | 2019-08-14 09:46 | NUR ---
Pain Clinic Assessment: 1. History of Osteoarthritis: LOWER EXTREMEITY History of Rheumatoid Arthritis: DENIES 2. Height: 5 ft. 7 in. 170.2 cm. Weight: 195.0 lb. oz. 88.452 kg. Patient's BMI: 30.5 3. Vital Signs: BP: 134/97 Pulse: Resp: Temp: 02 Sat: ECG Mon: 4. Pain Intensity: 2 5. Fall Risk: Dizziness: N Needs help standing or walking: N Fallen in the last 3 months: N Fall risk comments: 6. Patient on Blood Thinner: Warfarin (Coumadin) 7. History of Hypertension: Y 8. Opioid Therapy greater than 6 weeks: N Opiate Contract Signed: 9. Risk Assessment Tool Provided: LOW RISK-0 10. Functional Assessment Tool: 11. Recreational Drug Use: Current within past 3 mos Drug Type: MJ Tobacco Use: Never Smoker Tobacco Type: Amount or Packs/day: How Many Years: Alcohol Use: Yes Frequency: Quant:
--- NOTE | 2019-08-14 13:08 | HPC ---
[facility] [address] [address] PAIN MANAGEMENT CONSULTATION Name: ANKITA WHITNEY Room #: REG [facility]..#: [id number] Admission: 08/14/19 Attend Phys: Gisela Jacob Discharge: Date of : 60 Report #: [id number] THIS REPORT FOR: cc: TALHA MARES DO FAM - Family physician unknown Gisela Jacob ~ CC:Tayo Fiore DATE OF SERVICE: 08/14/2019 CHIEF COMPLAINT: Chronic abdominal pain and nausea. HISTORY OF PRESENT ILLNESS: This is a 58-year-old female who returns to the pain clinic today for refill of her Marinol. She uses this to help treat her chronic abdominal pain and chronic nausea. She reports that her nausea is at a level 2/10 today, feeling that it is fairly well controlled. She is worried about the coronavirus and not being able to get her medication. She knows that there are already issues with her transplant medication, which comes from [facility] and a very short supply of that medicine. Today, as I said her nausea is a level 2, it is worse with eating and worse in the morning, but her medications has been beneficial. ALLERGIES: TORADOL, CIPRO, VANCOMYCIN AND COMPAZINE. CURRENT LIST OF MEDICATIONS: Dronabinol 10 mg 3 times a day, Efudex cream, Tambocor, Lipitor, Toprol, Zestril, Tradjenta, turmeric, vitamin D, Prograf, Coumadin, MiraLax, prednisone, and Synthroid. PQRS: 1. She has lower extremity osteoarthritis and denies any rheumatoid arthritis. 2. Height is 5 feet 7 inches, weight is 195, BMI is 35. 3. Vital Signs: 134/97. The rest were deferred. The patient is wearing gloves today. Respirations 16. Oxygen sat is not taken due to wearing gloves due to coronavirus. 4. Pain score is 2/10. Fall risk, denies dizziness. Does not need help walking or standing, has not fallen in the last 3 months. 5. The patient is on Coumadin as well as medicine for hypertension. The patient does not take any opioids. 6. Risk assessment is low. Functional assessment is 25/70. 7. Recreational drug use, currently Marinol and marijuana. She denies any tobacco use and occasionally drinks alcohol. According to the prescription monitoring system, the patient is filling her Marinol as scheduled from one provider [place] [address] PAIN MANAGEMENT CONSULTATION Name: ANKITA WHITNEY Room #: REG [facility]#: [id number] Admission: 08/14/19 Attend Phys: Gisela Jacob Discharge: Date of : 60 Report #: [id number] PHYSICAL EXAMINATION: GENERAL: This is a well-developed, well-nourished 58-year-old female who appears her stated age, placing her current nausea score at 2/10 today. HEENT: Normocephalic, atraumatic. Extraocular eye muscles are intact. Mucous membranes are moist. ABDOMEN: Nontender. Presently, she has an ileostomy in place in her lower abdomen. Denies nausea currently. MUSCULOSKELETAL: Tenderness in multiple joints as a result of her osteoarthritis. We reviewed the fact that opiate medications are being used to provide analgesia adequate to support activities of daily living, not attempting to achieve a specific pain score on the 0-10 Visual Analog Scale. The current opiate medications are providing sufficient analgesia to allow the patient to participate in activities of daily living. The patient is not exhibiting any aberrant behavior suggestive of drug diversion. The patient is not having any adverse reactions to medications. The patient is not suffering from daytime somnolence or mental acuity changes. The patient is managing opiate-induced constipation with appropriate rqep-uuo-bjohxcd agents and dietary considerations. The patient was counseled on concern for caution with operating a motor vehicle while using opiate medications. ASSESSMENT: 1. Chronic abdominal pain with chronic nausea. 2. Ulcerative colitis. 3. Fibromyalgia. 4. Osteoarthritis. 5. Status post liver transplant. 6. History of vaginal cancer. PLAN: 1. We discussed treatment options with the patient today. The patient is here for refill of her dronabinol. She finds this medicine very beneficial in controlling nausea and vomiting that she has as a result of medications and previous health problems as her ulcerative colitis and her history of liver transplant and has nausea associated with her antirejection medicines. We will refill this medicine today for 10 mg #90 with 2 additional refills. The patient does report that during this coronavirus outbreak Medicare Part D has been allowing a 3-month supply of medications for patients that have Part D. I will have Dr. Tayo Fiore write on the script to allow a 3-month supply if the medicine is available for her. 2. We encouraged the patient to take the lowest most effective dose currently during this time in case the supplied is limited due to breaks in the supply chain. The patient is very aware of this due to her anti-rejection medicine coming from [facility] and is on backorder currently. She will try to decrease her Marinol on days that she has less nausea. [facility] [address] [place] [address] PAIN MANAGEMENT CONSULTATION Name: ANKITA WHITNEY Room #: REG [facility] [id number] Admission: 08/14/19 Attend Phys: Gisela Jacob Discharge: Date of : 60 Report #: [id number] 3. The patient is seen in collaboration with Dr. Tayo Fiore who sent her medicines electronically. <ELECTRONICALLY SIGNED> By: Gisela Jacob 08/14/19 1308 [id number] [id number] Gisela Jacob /nt
== END ==
LOC: PAIN 06:47
DX: R10.9 Unspecified abdominal pain (principal); R11.0 Nausea; K51.90 Ulcerative colitis, unspecified, without complications; M79.7 Fibromyalgia; M19.90 Unspecified osteoarthritis, unspecified site; Z94.4 Liver transplant status; Z88.1 Allergy status to other antibiotic agents; Z88.8 Allergy status to other drugs, medicaments and biological substances; Z91.048 Other nonmedicinal substance allergy status; Z79.899 Other long term (current) drug therapy

== ENCOUNTER → 2019-11-07 | Outpatient (CLI) | payer OTHER, BC ==
[~2019-11-07] VITALS: Ht 170.2 cm; Wt 90.7 kg
[2019-11-07 10:19] VITALS: BP 151/96
--- NOTE | 2019-11-07 10:49 | NUR ---
Pain Clinic Assessment: 1. History of Osteoarthritis: LOWER EXTREMEITY History of Rheumatoid Arthritis: DENIES 2. Height: 5 ft. 7 in. 170.2 cm. Weight: 200.0 lb. oz. 90.720 kg. Patient's BMI: 31.3 3. Vital Signs: BP: 151/96 Pulse: 70 Resp: 14 Temp: 02 Sat: 100 ECG Mon: 4. Pain Intensity: 2 5. Fall Risk: Dizziness: N Needs help standing or walking: N Fallen in the last 3 months: N Fall risk comments: 6. Patient on Blood Thinner: Warfarin (Coumadin) 7. History of Hypertension: Y 8. Opioid Therapy greater than 6 weeks: N Opiate Contract Signed: 9. Risk Assessment Tool Provided: LOW RISK-0 10. Functional Assessment Tool: 11. Recreational Drug Use: Current within past 3 mos Drug Type: MARIJUANA Tobacco Use: Never Smoker Tobacco Type: Amount or Packs/day: How Many Years: Alcohol Use: Yes Frequency: Special Occasions Quant: 1
--- NOTE | 2019-11-17 09:29 | HPC ---
[facility] [address] [place] [address] PAIN MANAGEMENT CONSULTATION Name: ANKITA WHITNEY Room #: REG [facility].#: [id number] Admission: 11/07/19 Attend Phys: Tayo Fiore MD Discharge: Date of : 60 Report #: [id number] THIS REPORT FOR: cc: TALHA MARES DO FAM - Family physician unknown Tayo Fiore MD ~ CC: TALHA MARES FAM unknown Tayo Fiore DATE OF SERVICE: 11/07/2019 Followup visit for chronic abdominal pain, nausea and diarrhea. HISTORY OF PRESENT ILLNESS: Followup visit for the patient, who have provided treatment for over 10 years. She has a remarkable history. She has a liver transplant. She has autoimmune problems and has suffered from intractable abdominal pain and nausea. Many years ago, she found that dronabinol almost completely eliminated her symptoms with a daily dose which has remained consistent for years. She also suffer from chronic fibromyalgia and the dronabinol has aided that pain as well. Her long standing dose is continued at 10 mg 3 times daily. Over the course of the last 10 years, not accelerated her dose and shown no misuse or abuse. She is not on any other pain medications and no opioids. PQRS: Positive for lower extremity osteoarthritis. BMI is 31.3 down a bit from her last visit. Blood pressure 151/96, heart rate 70, respirations 16, O2 sat 100%, pain intensity 2. She is not at fall risk. She is on Coumadin chronically as hypertensive. She is not on an opioid agreement and takes no opioids. She has completed an opioid risk tool, her score is 0. Her functional assessment score today is reduced from 25 to 15 and she feels like she is doing well. She denies use of tobacco and occasionally has an alcoholic beverage perhaps 1 week at the most and generally in a social setting. Mike will be one of the social settings as just had her first grandchild for her daughter born this morning. PHYSICAL EXAMINATION: GENERAL: She is pleasant, alert and oriented, without signs of depression, anxiety or overmedication. CHEST: Clear. CARDIAC: Rhythm is regular. ABDOMEN: Tender. Active bowel sounds. IMPRESSION: 1. Chronic abdominal pain with chronic nausea. 2. Status post liver transplant. [facility] [address] [place] [address] PAIN MANAGEMENT CONSULTATION Name: ANKITA WHITNEY Room #: REG [facility].#: [id number] Admission: 11/07/19 Attend Phys: Tayo Fiore MD Discharge: Date of : 60 Report #: [id number] 3. Ulcerative colitis. 4. Fibromyalgia. 5. Osteoarthritis. 6. History of vaginal cancer. 7. Management of high risk medication. Dronabinol is a schedule 3 medication. I have renewed her medicines along with refills and I plan to see her back in the clinic in 3-6 months. She has shown no misuse or abuse and she is grateful for the benefits. She safeguards her medication carefully. She prefers use of dronabinol in her pill form and the pharmaceutical accuracy of dosing is a benefit. I would not recommend any change although marijuana is now legal in [place]. She would lose the consistancy of known dosing in her current regimen. Followup visit planned. <ELECTRONICALLY SIGNED> By: Tayo Fiore MD 11/17/19 0929 1250 [id number] Tayo Fiore MD /nt
== END ==
LOC: PAIN 06:54
PROVIDERS: ATTEND Anesthesiology Pain Medicine
DX: R10.9 Unspecified abdominal pain (principal); R19.7 Diarrhea, unspecified; R11.0 Nausea; K51.90 Ulcerative colitis, unspecified, without complications; M19.90 Unspecified osteoarthritis, unspecified site; M79.7 Fibromyalgia; F11.20 Opioid dependence, uncomplicated; Z94.4 Liver transplant status; Z85.44 Personal history of malignant neoplasm of other female genital organs; Z79.899 Other long term (current) drug therapy

== ENCOUNTER → 2020-02-19 | Outpatient (CLI) | payer OTHER, BC ==
[~2020-02-19] VITALS: Ht 170.2 cm; Wt 90.5 kg
[2020-02-19 08:38] VITALS: BP 131/82
--- NOTE | 2020-02-19 08:43 | NUR ---
Pain Clinic Assessment: 1. History of Osteoarthritis: LOWER EXTREMEITY History of Rheumatoid Arthritis: DENIES 2. Height: 5 ft. 7 in. 170.2 cm. Weight: 199.6 lb. oz. 90.538 kg. Patient's BMI: 31.3 3. Vital Signs: BP: 131/82 Pulse: 72 Resp: 16 Temp: 02 Sat: 98 ECG Mon: 4. Pain Intensity: 2 5. Fall Risk: Dizziness: N Needs help standing or walking: N Fallen in the last 3 months: N Fall risk comments: 6. Patient on Blood Thinner: Warfarin (Coumadin) 7. History of Hypertension: Y 8. Opioid Therapy greater than 6 weeks: N Opiate Contract Signed: 9. Risk Assessment Tool Provided: LOW RISK-0 10. Functional Assessment Tool: 11. Recreational Drug Use: Current within past 3 mos Drug Type: Tobacco Use: Never Smoker Tobacco Type: Amount or Packs/day: How Many Years: Alcohol Use: Yes Frequency: Quant:
--- NOTE | 2020-02-20 07:37 | HPC ---
[facility] [address] [place] [address] PAIN MANAGEMENT CONSULTATION Name: ANKITA WHITNEY Room #: REG [facility].#: [id number] Admission: 02/19/20 Attend Phys: Gisela Jacob Discharge: Date of : 60 Report #: [id number] CC: Gisela [facility] Physician staff Tayo Fiore MD DATE OF SERVICE: 02/19/2020 CHIEF COMPLAINT: Chronic abdominal pain, nausea and diarrhea. HISTORY OF PRESENT ILLNESS: As you know, this is a very pleasant 59-year-old female who returns to the pain clinic today for refill of her medication that she uses to help treat her ongoing nausea and abdominal pain from a liver transplant in her medications. Today, she reports she is doing quite well on the dronabinol taking it several times a day. It mostly eliminates her extensive nausea that she does have. She states she did not know what she would do without the medication. Today, she is reporting that she has been feeling quite well for a significant amount of time. She does report that occasionally she will have a flare depending on what she eats, but overall she is doing quite well. The patient is very excited. She has a new grandbaby and in March starts caring for this baby 2 times a week. Since she is no longer working, she said that will give her something to look forward to several times a week. She denies any problems with constipation or side effects as a result of her medications. ALLERGIES: TORADOL, COMPAZINE, CIPRO AND VANCOMYCIN. CURRENT LIST OF MEDICATIONS: Dronabinol 10 mg 3 times a day, Efudex, flecainide, atorvastatin, metoprolol, lisinopril, Tradjenta, turmeric, vitamin D, Prograf, warfarin, MiraLax, prednisone and Synthroid. PQRS: 1. She has osteoarthritis in her lower extremities. Denies rheumatoid arthritis. 2. Height is 5 feet 7 inches, weight is 199, BMI is 31. 3. Vital signs; blood pressure 131/82, pulse is 72, respirations 16, oxygen sat is 98. 4. Pain and nausea score is 2/10. 5. Denies dizziness, does not need help walking or standing, has not fallen in the last 3 months. 6. The patient is on Coumadin as well as medicines for hypertension. 7. Her opioid therapy is greater than 6 weeks. No opioids are given. Her risk assessment is low. Functional assessment is 25/70. 3. Recreational drug use current, she does take Marinol, which is synthetic marijuana. She is not a smoker and occasionally drinks alcohol. According to the prescription monitoring system, the patient is filling appropriately in a timely fashion. She is due to fill her medications today. PHYSICAL EXAMINATION: GENERAL: She is alert and orientated, very pleasant 59-year-old female who is a good historian. HEENT: Normocephalic, atraumatic. Extraocular eye muscles are intact. ABDOMEN: Tender with active bowel sounds. IMPRESSION: 1. Chronic abdominal pain with chronic nausea. 2. Status post liver transplant. 3. Fibromyalgia. 4. Osteoarthritis. 5. History of vaginal cancer. 6. Management of high risk medications. PLAN: We discussed treatment options with the patient today. The patient finds her dronabinol very beneficial in eliminating most of her nausea if she does take it on a regular schedule, enables her to be active in her life. She denies any side effects. We will have Dr. Tayo Fiore refill this medication for 10 mg, #90 with 2 additional refills. The patient will return at the beginning of the New Year, which we may need to do a preauthorization for this medication that we have authorized yearly in the past. The patient is seen today in collaboration with Dr. Tayo Fiore. <ELECTRONICALLY SIGNED> By: Gisela Jacob 02/20/20 0737 0906 [facility] Gisela valentine
== END ==
LOC: PAIN 06:53
PROVIDERS: ATTEND Clinical Nurse Specialist Adult Health
DX: R10.9 Unspecified abdominal pain (principal); G89.29 Other chronic pain; R11.0 Nausea; R19.7 Diarrhea, unspecified; M79.7 Fibromyalgia; M19.90 Unspecified osteoarthritis, unspecified site; F11.20 Opioid dependence, uncomplicated; Z94.4 Liver transplant status; Z85.44 Personal history of malignant neoplasm of other female genital organs; Z88.8 Allergy status to other drugs, medicaments and biological substances; Z79.899 Other long term (current) drug therapy

== ENCOUNTER → 2020-05-10 | Outpatient (CLI) | payer OTHER, BC ==
[~2020-05-10] VITALS: Ht 170.2 cm; Wt 89.8 kg
[~2020-05-10] MED LIST changes: +JANTOVEN2.5 MG PO
[2020-05-10 13:49] VITALS: BP 151/94
--- NOTE | 2020-05-10 14:01 | NUR ---
Pain Clinic Assessment: 1. History of Osteoarthritis: LOWER EXTREMEITY History of Rheumatoid Arthritis: DENIES 2. Height: 5 ft. 7 in. 170.2 cm. Weight: 198.0 lb. oz. 89.812 kg. Patient's BMI: 31.0 3. Vital Signs: BP: 151/94 Pulse: 78 Resp: 16 Temp: 02 Sat: 95 ECG Mon: 4. Pain Intensity: 2 5. Fall Risk: Dizziness: N Needs help standing or walking: N Fallen in the last 3 months: N Fall risk comments: 6. Patient on Blood Thinner: Warfarin (Coumadin) 7. History of Hypertension: Y 8. Opioid Therapy greater than 6 weeks: N Opiate Contract Signed: 9. Risk Assessment Tool Provided: LOW RISK-0 10. Functional Assessment Tool: 11. Recreational Drug Use: Current within past 3 mos Drug Type: Tobacco Use: Never Smoker Tobacco Type: Amount or Packs/day: How Many Years: Alcohol Use: Yes Frequency: Quant:
--- NOTE | 2020-05-11 14:15 | HPC ---
[facility] [place] [address] PAIN MANAGEMENT CONSULTATION Name: ANKITA WHITNEY Room #: REG [facility].#: [id number] Admission: 05/10/20 Attend Phys: Gisela Jacob Discharge: Date of : 60 Report #: [id number] THIS REPORT FOR: cc: TALHA MARES DO Physician not on staff Gisela Jacob ~ DATE OF SERVICE: 05/10/2020 CHIEF COMPLAINT: Chronic abdominal pain and nausea. HISTORY OF PRESENT ILLNESS: This is a followup visit and refill medications that she takes for her ongoing nausea and abdominal pain. She takes dronabinol three times a day and finds this very beneficial in helping relieve almost 100% of her nausea. Today, she is rating at a 2. She had a liver transplant in 1994 and has had nausea since that time. The patient also has fibromyalgia in multiple joints and she utilizes [id number] medications to help combat that. The patient states overall she is doing quite well, avoiding COVID, staying at home. Her is a transplant recipient as well, so they have been very cautious during this COVID outbreak. ALLERGIES: TORADOL, COMPAZINE, CIPRO AND VANCOMYCIN. CURRENT LIST OF MEDICATIONS: Dronabinol 10 mg t.i.d., Efudex, Tambocor, Lipitor, Toprol, Zestril, Tradjenta, vitamin D, turmeric, Prograf, warfarin, MiraLax, prednisone and Synthroid. PQRS: 1. She has osteoarthritis in her lower extremities as well as fibromyalgia. She denies any rheumatoid arthritis. 2. Height is 5 feet 7 inches, weight is 198, BMI is 31. 3. Vital signs: Blood pressure 151/94, pulse is 78, respirations 16, oxygen sat is 95%. 4. Pain score is 2/10. 5. Denies dizziness. Does not need help walking or standing, has not fallen in the last 3 months. The patient is on Coumadin as well as medicines for hypertension. She is not on any opioids. Her risk assessment is low. Functional assessment is 25/70. 6. Recreational drug use, currently taking Marinol. Denies tobacco use and occasionally drinks alcohol. According to the prescription monitoring system, the patient is filling her Marinol in a timely fashion and is due to have that medication filled today. She has been quite stable on that medication for several years, helping treat her ongoing nausea issues. PHYSICAL EXAMINATION: [facility] [address] [place] [address] PAIN MANAGEMENT CONSULTATION Name: ANKITA WHITNEY Room #: REG [facility]#: [id number] Admission: 05/10/20 Attend Phys: Gisela Jacob Discharge: Date of : 60 Report #: [id number] GENERAL: Pleasant and alert, orientated female without signs of overmedication or depression. HEENT: Normocephalic, atraumatic. Extraocular eye muscles are intact. She has a red face due to a chemical peel today that is very dry in appearance. CARDIAC: Regular rhythm. ABDOMEN: Tenderness with active bowel sounds. IMPRESSION: 1. Chronic abdominal pain with chronic nausea. 2. Post-liver transplant. 3. Fibromyalgia. 4. History of vaginal cancer. 5. Ulcerative colitis. 6. Osteoarthritis. 7. Management of high risk medications. PLAN: 1. We discussed treatment options and we will continue the patient's Dornabinal 10 mg 3 times a day, #90 sent with refills to her local pharmacy. This may need a prior authorization in the New Year. She has found this medication to be very beneficial in helping with her ongoing nausea from post-transplant medications as well she does have a history of vaginal cancer. She does safeguard her meds at all times and feels that this medication is very beneficial. The patient is seen today in collaboration with Dr. Tayo Fiore who did see the patient as well today. The patient will return in 3 months or as needed. <ELECTRONICALLY SIGNED> By: Gisela Jacob 05/11/20 1415 [id number] Gisela Jacob /betsy
== END ==
LOC: PAIN 07:04
PROVIDERS: ATTEND Clinical Nurse Specialist Adult Health
DX: K51.90 Ulcerative colitis, unspecified, without complications (principal); G89.29 Other chronic pain; R11.0 Nausea; M79.7 Fibromyalgia; M19.90 Unspecified osteoarthritis, unspecified site; F11.20 Opioid dependence, uncomplicated; Z94.4 Liver transplant status; Z88.8 Allergy status to other drugs, medicaments and biological substances; Z79.899 Other long term (current) drug therapy

== ENCOUNTER → 2020-08-16 | Outpatient (CLI) | payer OTHER, BC ==
[~2020-08-16] VITALS: Ht 170.2 cm; Wt 88.9 kg
[2020-08-16 09:10] VITALS: BP 136/92
--- NOTE | 2020-08-16 09:15 | NUR ---
Pain Clinic Assessment: 1. History of Osteoarthritis: LOWER EXTREMEITY History of Rheumatoid Arthritis: DENIES 2. Height: 5 ft. 7 in. 170.2 cm. Weight: 196.0 lb. oz. 88.905 kg. Patient's BMI: 30.7 3. Vital Signs: BP: 136/92 Pulse: 70 Resp: 16 Temp: 02 Sat: 98 ECG Mon: 4. Pain Intensity: 2 5. Fall Risk: Dizziness: N Needs help standing or walking: N Fallen in the last 3 months: N Fall risk comments: 6. Patient on Blood Thinner: Warfarin (Coumadin) 7. History of Hypertension: Y 8. Opioid Therapy greater than 6 weeks: N Opiate Contract Signed: 9. Risk Assessment Tool Provided: LOW RISK-0 10. Functional Assessment Tool: 11. Recreational Drug Use: Current within past 3 mos Drug Type: marijuana Tobacco Use: Never Smoker Tobacco Type: Amount or Packs/day: How Many Years: Alcohol Use: Yes Frequency: Special Occasions Quant:
== END ==
LOC: PAIN 07:30
PROVIDERS: ATTEND Clinical Nurse Specialist Adult Health
DX: R10.9 Unspecified abdominal pain (principal); G89.29 Other chronic pain; I10 Essential (primary) hypertension; M19.90 Unspecified osteoarthritis, unspecified site; F19.20 Other psychoactive substance dependence, uncomplicated; Z79.899 Other long term (current) drug therapy; Z79.01 Long term (current) use of anticoagulants; Z72.89 Other problems related to lifestyle

== ENCOUNTER → 2020-11-11 | Outpatient (CLI) | payer OTHER, BC ==
[~2020-11-11] MED LIST changes: +JANTOVEN1 MG PO; -JANTOVEN2.5 MG PO
[2020-11-11 12:46] VITALS: BP 127/83
--- NOTE | 2020-11-11 12:56 | NUR ---
Pain Clinic Assessment: 1. History of Osteoarthritis: LOWER EXTREMEITY fibromyalgia History of Rheumatoid Arthritis: DENIES 2. Height: 5 ft. 7 in. 170.2 cm. Weight: lb. oz. kg. Patient's BMI: 3. Vital Signs: BP: 127/83 Pulse: 77 Resp: 18 Temp: 02 Sat: 94 ECG Mon: 4. Pain Intensity: 3 5. Fall Risk: Dizziness: N Needs help standing or walking: N Fallen in the last 3 months: N Fall risk comments: 6. Patient on Blood Thinner: Warfarin (Coumadin) 7. History of Hypertension: Y 8. Opioid Therapy greater than 6 weeks: N Opiate Contract Signed: 9. Risk Assessment Tool Provided: LOW RISK-0 10. Functional Assessment Tool: 11. Recreational Drug Use: Current within past 3 mos Drug Type: marijuana Tobacco Use: Never Smoker Tobacco Type: Amount or Packs/day: How Many Years: Alcohol Use: Yes Frequency: Special Occasions Quant: a beer
== END ==
LOC: PAIN 10:10
PROVIDERS: ATTEND Clinical Nurse Specialist Adult Health
DX: R10.9 Unspecified abdominal pain (principal); R11.0 Nausea; G89.29 Other chronic pain; M79.7 Fibromyalgia; M19.90 Unspecified osteoarthritis, unspecified site; I10 Essential (primary) hypertension; F12.90 Cannabis use, unspecified, uncomplicated; Z79.01 Long term (current) use of anticoagulants; Z88.1 Allergy status to other antibiotic agents; Z88.8 Allergy status to other drugs, medicaments and biological substances; Z79.891 Long term (current) use of opiate analgesic; Z79.899 Other long term (current) drug therapy; Z72.89 Other problems related to lifestyle

== ENCOUNTER → 2021-02-10 | Outpatient (CLI) | payer OTHER, BC ==
[~2021-02-10] VITALS: Ht 170.2 cm; Wt 88.8 kg
[~2021-02-10] MED LIST changes: +ELIQUIS2.5 MG PO
[2021-02-10 09:19] VITALS: BP 143/100
--- NOTE | 2021-02-10 09:37 | NUR ---
Pain Clinic Assessment: 1. History of Osteoarthritis: LOWER EXTREMEITY fibromyalgia History of Rheumatoid Arthritis: DENIES 2. Height: 5 ft. 7 in. 170.2 cm. Weight: 195.8 lb. oz. 88.814 kg. Patient's BMI: 30.7 3. Vital Signs: BP: 143/100 Pulse: 67 Resp: 20 Temp: 02 Sat: 100 ECG Mon: 4. Pain Intensity: 2 PAIN,4-NAUSEA 5. Fall Risk: Dizziness: N Needs help standing or walking: N Fallen in the last 3 months: N Fall risk comments: 6. Patient on Blood Thinner: *ELIQUIS 7. History of Hypertension: Y 8. Opioid Therapy greater than 6 weeks: N Opiate Contract Signed: 9. Risk Assessment Tool Provided: LOW RISK-0 10. Functional Assessment Tool: 11. Recreational Drug Use: Current within past 3 mos Drug Type: MARAJUANA Tobacco Use: Never Smoker Tobacco Type: Amount or Packs/day: How Many Years: Alcohol Use: No Frequency: Quant:
== END ==
LOC: PAIN 07:22
PROVIDERS: ATTEND Anesthesiology Pain Medicine
DX: G89.4 Chronic pain syndrome (principal); K51.90 Ulcerative colitis, unspecified, without complications; M19.90 Unspecified osteoarthritis, unspecified site; Z79.899 Other long term (current) drug therapy; Z79.891 Long term (current) use of opiate analgesic

== ENCOUNTER → 2021-04-28 | Outpatient (CLI) | payer OTHER, BC ==
[~2021-04-28] VITALS: Ht 170.2 cm; Wt 88.5 kg
[2021-04-28 09:36] VITALS: BP 122/76
--- NOTE | 2021-04-28 10:02 | NUR ---
Pain Clinic Assessment: 1. History of Osteoarthritis: LOWER EXTREMEITY fibromyalgia History of Rheumatoid Arthritis: DENIES 2. Height: 5 ft. 7 in. 170.2 cm. Weight: 195.0 lb. oz. 88.452 kg. Patient's BMI: 30.5 3. Vital Signs: BP: 122/76 Pulse: 72 Resp: 16 Temp: 02 Sat: 98 ECG Mon: 4. Pain Intensity: 2 PAIN,4-NAUSEA 5. Fall Risk: Dizziness: N Needs help standing or walking: N Fallen in the last 3 months: N Fall risk comments: 6. Patient on Blood Thinner: *ELIQUIS 7. History of Hypertension: Y 8. Opioid Therapy greater than 6 weeks: N Opiate Contract Signed: 9. Risk Assessment Tool Provided: LOW RISK-0 10. Functional Assessment Tool: 11. Recreational Drug Use: Current within past 3 mos Drug Type: Tobacco Use: Never Smoker Tobacco Type: Amount or Packs/day: How Many Years: Alcohol Use: No Frequency: Quant:
== END ==
LOC: PAIN 09:00
PROVIDERS: ATTEND Clinical Nurse Specialist Adult Health
DX: G89.29 Other chronic pain (principal); R11.0 Nausea; K51.80 Other ulcerative colitis without complications; M79.7 Fibromyalgia; M19.90 Unspecified osteoarthritis, unspecified site; Z94.4 Liver transplant status; Z85.41 Personal history of malignant neoplasm of cervix uteri; Z88.8 Allergy status to other drugs, medicaments and biological substances; Z79.899 Other long term (current) drug therapy